=== PATIENT | male | born 1990 | race Caucasian/White ===

== ENCOUNTER 2024-01-31 19:31 | Emergency (ER) | payer OTHER, SELFPAY ==
[2024-01-31 19:33] VITALS: BP 125/85
[2024-01-31 20:07] VITALS: BP 129/84; BMI 27.1
[2024-01-31] MEDS: NSS 1000 IV (20:50)
[2024-01-31 21:00] VITALS: BP 136/74
[2024-01-31 21:00] LABS: % Basophils 0.3 % (0-2); % Eosinophils 0.1 % (0-6); % Immature Granulocytes 0.3 % (0-0.5); % Lymphocytes 13.6 % (20.5-51.1); % Monocytes 6.6 % (1.7-9.3); % Neutrophils 79.1 % (42.2-75.2); Absolute Lymphocytes 1.5 10^3/uL (1.2-3.4); Absolute Monocytes 0.8 10^3/uL (0.1-0.6); Hematocrit 45.8 % (39.0-52.0); Hemoglobin 16.5 g/dL (13.0-18.0); Mean Corpuscular Hgb 30.6 pg (27.0-31.0); Mean Platelet Volume 9.4 fL (7.4-10.4); Nucleated Red Blood Cells % 0 % (-); Platelet Count 289 10^3/uL (130-400); Red Blood Cell Count 5.39 10^6/uL (4.70-6.10); Red Cell Dist. Width 11.9 % (11.5-14.5); White Blood Cell Count 11.3 10^3/uL (4.8-10.8)
[2024-01-31 21:11] LABS: Amphetamines Negative (Negative); Barbiturates Negative (Negative); Benzodiazepines Negative (Negative); Buprenorphine Negative (Negative); Cocaine Negative (Negative); Marijuana Negative (Negative); Methadone Negative (Negative); Methamphetamines Negative (Negative); Opiates Negative (Negative); Phencyclidine Negative (Negative); Tricyclic Antidepressants Negative (Negative)
[2024-01-31 21:12] LABS: ALT (SGPT) 62 U/L (0-50); AST (SGOT) 32 U/L (17-59); Albumin 3.6 g/dl (3.5-5.0); Alkaline Phosphatase 69 U/L (38-126); Blood Urea Nitrogen 19 mg/dl (9-20); Calcium 7.9 mg/dl (8.4-10.2); Carbon Dioxide 24 mmol/L (22-30); Chloride 108 mmol/L (98-107); Estimated Creatinine Clearance > 125 ml/min; Glucose 90 mg/dl (70-99); Potassium 3.6 mmol/L (3.5-5.1); Sodium 139 mmol/L (135-145); Total Bilirubin 0.3 mg/dl (0.2-1.3); Total Protein 6.5 g/dl (6.3-8.2); eGFR > 60.00
[2024-01-31 22:00] VITALS: BP 136/75
--- NOTE | 2024-01-31 23:46 | ED.GENMED ---
History of Present Illness
General
Chief Complaint: Dizziness
Source: patient
Exam Limitations: none
Time Seen by Provider: 01/31/24 20:03
Nursing documentation reviewed up to this point in time: agreed with
Travel History
Have you had any contact with someone who has COVID-19?: No
Do you have any symptoms of coronavirus? Fever > 100 degrees, chills, cough, shortness of breath, sore throat, loss of taste or smell, muscle aches, or headache?: No
History of Present Illness
History of Present Illness:
Patient states he drank and energy drink and then took 5 capsules of Kraton. States he started to feel dizzy, had difficutly focusing, muscle spasms, and then felt like he was having a panic attack. He called 911. Brought to ED b EMS for eval. He
is awake and alert, in no distress. VSS
Past History
Past History
ED Past Medical History: None
ED Past Surgical History: None
Review of Systems
Review of Systems
All Other Systems: ROS reviewed and negative except as documented in HPI and ROS
Constitutional: Reports no symptoms
EENT: Reports no symptoms
Respiratory: Reports no symptoms
Cardiac: Reports no symptoms
ABD/GI: Reports no symptoms
: Reports no symptoms
Musculoskeletal: Reports no symptoms
Skin: Reports no symptoms
Neurological: Reports dizzy
Psychiatric: Reports no symptoms
Phy Exam
General Physical Exam
General Presentation: well appearing and no apparent distress
General age: appears stated age
General Skin: warm and dry
General Habitus: normal
General Mental: alert
Cardiovascular Exam
Cardiovascular Exam: regular rate/rhythm and no edema
Pulmonary Exam
Pulmonary Exam: lungs clear and no respiratory distress
Neurological Exam
Neurological Exam: alert, oriented x3, CN II-XII intact and no motor deficits
Musculoskeletal Exam
Musculoskeletal Exam: full ROM and neuro vasc intact
Skin Exam
Skin Exam: normal color, warm/dry and no rash
Psychiatric Exam
Psychiatric Exam: normal mood/affect
Course
Orders/Labs/Results
Orders:
Orders
01/31/24 19:38
Electrocardiogram (*1) Urgent
Reason for Study: Vertigo / Dizzy
01/31/24 19:39
EKG- Treatment ONCE
01/31/24 20:35
0.9% Sodium Chloride 1000 ml [Nss] 1,000 ml IV BOLUS
01/31/24 20:47
Complete Blood Count/With Diff Urgent
Comprehensive Metabolic Panel Urgent
Urine Drug Abuse Screen Urgent
Date Specimen was Collected: 01/31/24
Time Specimen was Collected: 20:45
Abnormal Lab Results
01/31/24
20:47
WBC 11.3 H 10^3/uL
(4.8-10.8)
Absolute Neuts (auto) 9.0 H 10^3/uL
(1.4-6.5)
Absolute Monos (auto) 0.8 H 10^3/uL
(0.1-0.6)
Neutrophils % 79.1 H %
(42.2-75.2)
Lymphocytes % 13.6 L %
(20.5-51.1)
Chloride 108 H mmol/L
(98-107)
Calcium 7.9 L mg/dl
(8.4-10.2)
ALT 62 H U/L
(0-50)
01/31/24 20:47
01/31/24 20:47
Vital Signs
Initial and Last Documented VS:
Initial Vital Signs
Temp Pulse Resp BP Pulse Ox
98.3 F 95 18 125/85 98
01/31/24 19:33 01/31/24 19:33 01/31/24 19:33 01/31/24 19:33 01/31/24 19:33
Last Documented Vital Signs
Temp Pulse Resp BP Pulse Ox
98.3 F 66 11 136/75 96
01/31/24 19:33 01/31/24 22:30 01/31/24 22:30 01/31/24 22:00 01/31/24 22:30
*Critical Care Note
Total Time (30-74mins, 75-104mins- exclusive of procedures): Not Applicable
Update Note
Update Note:
Improved after IV fluids. He is discharged home, will follow up with PCP
ED Attending Note
-
Portions of this chart may have been created with voice recognition software.� Occasional wrong word or��sound alike� substitutions may have occurred due to the inherent limitations of voice recognition software.
Discharge Plan
Departure
Patient Disposition: Home (Routine Discharge)
Date of Disposition: 01/31/24
Time of Disposition: 22:24
Patient with high blood pressure during this ER visit?: No
Condition: Good
Covid-19: Not Applicable
Discharge Problem:
Dizziness
Instructions: Adverse Drug Reactions, Adult (DC), Dizziness
Referrals:
NONE,* [Family Provider] -
Activity Restrictions/Additional Instructions:
Follow up with your family doctor.
Interventions
Interventions:
*Risk Screen - Suicide Last Done: 01/31/24 19:38
*General Assessment Last Done: 01/31/24 19:38
*Neglect/Abuse Screening Last Done: 01/31/24 19:38
ED- Fall Risk Assessment Last Done: 01/31/24 20:08
*ED COVID-19 Vaccine History Last Done: 01/31/24 20:08
*Nursing Disposition Last Done: 01/31/24 22:48
ED- Neurological Assessment Last Done: 01/31/24 20:10
ED- Cardiac Assessment Last Done: 01/31/24 20:10
ED Swallowing Screen Last Done: 01/31/24 21:00
Discharge Date and Time
Discharge Date/Time: 01/31/24 22:48
== END 2024-01-31 22:48 | disposition home or self-care (01) ==
LOC: EMR 19:31
PROVIDERS: Nurse Practitioner; EMERGENCY PHYSICIAN Emergency Medicine
DX: R42 Dizziness and giddiness (principal); M62.838 Other muscle spasm; F41.9 Anxiety disorder, unspecified
CPT/HCPCS: 99284; 96360; 80053; 80306; 85025; 93005

== ENCOUNTER 2024-11-22 06:10 | Day surgery (SDC) | payer OTHER, SELFPAY ==
[2024-11-22 06:55] VITALS: BMI 26.1
[2024-11-22 06:56] VITALS: BMI 26.1
[2024-11-22 06:57] VITALS: BP 123/83
[2024-11-22] MEDS: NORMOSOL-R/PLASMALYTE-A 1000 IV (07:15)
--- NOTE | 2024-11-22 07:31 | HP.FOC2 ---
Focused History & Physical
Chief Complaint
HPI:
Chief Complaint:
34-year-old male who presents with multiple subcutaneous lesions across his abdomen and lower neck. Will plan for resection.
HPI / Indication for Planned Procedure:
34-year-old male who presents with multiple subcutaneous lesions across his abdomen and lower neck. Will plan for resection.
Relevant Past Medical History: Negative
Relevant Social History: Negative
Relevant Family History: Negative
Relevant Past Surgical History: Negative
Review of Systems
Review of Pertinent Systems: All Systems Negative
Medication
See Medication form for detailed medications: Yes
Medication List (including Herbals & OTC):
No Meds [No Current Medications] 11/14/24
Medications Reviewed: Yes
Allergies and Reactions
Patient has Allergies: No
Noted Allergies and Reactions:
Allergy/AdvReac Type Severity Reaction Status Date / Time
No Known Allergies Allergy Verified 11/22/24 06:55
Pertinent Physical Exam
All Other Systems: Negative
Head/Neck: Normal
Diagnosis / Assessment
34-year-old male who presents with multiple subcutaneous lesions across his abdomen and lower neck. Will plan for resection.
Plan / Procedure
Will plan for surgical excision of the subcutaneous lesions under MAC
Anesthesia/Sedation to be done by Anesthesia Provider: Yes
--- NOTE | 2024-11-22 07:32 | W.SUR.PREOP ---
Pre-Operative Surgical Note
-
I have examined this patient prior to the performance of the scheduled procedure.
The patient's condition is unchanged from the time of the current History and
Physical and the patient is able to undergo the scheduled procedure.
--- NOTE | 2024-11-22 08:34 | W.IMMPOSTOP ---
Surgical Immed Post Op Note
-
Primary Surgeon: Oscar Diaz MD
Assisting Surgeon: None
Pre-op Diagnosis: Abdominal wall lipoma x 3, right chest wall lipoma x 1, lower neck sebaceous cyst x 1
Post-op Diagnosis: Same
Procedure Performed:
1. Excision of abdominal wall lipoma
2. Excision of abdominal wall lipoma
3. Excision of abdominal wall lipoma
4. Excision of right chest wall lipoma
5. Excision of lower neck sebaceous cyst
Anesthesia Type: General
Specimen / Cultures:
1. Right upper quadrant abdominal wall lipoma medial
2. Right upper quadrant abdominal wall lipoma lateral
3. Left upper quadrant abdominal wall lipoma
4. Right chest wall lipoma
5. Neck sebaceous cyst
Estimated Blood Loss: 1 cc
Complications: None
Operative Findings: 2 separate lipomas removed through the right upper quadrant medial incision, combined measure 2.5 x 3 cm. A right upper quadrant lateral incision was made for a 5.5 x 3 cm lipoma. A left upper quadrant lipoma was then removed
which measured 2 x 0.5 cm and then a right chest wall lipoma was removed that measured 2.5 x 1.5 cm. Finally an elliptical incision was used to excise a sebaceous cyst of the neck that measured 1 x 1 cm. After irrigating and achieving hemostasis
and all wounds, they were closed in layers with interrupted 3-0 Vicryl's followed by running 4-0 Monocryl suture and Dermabond.
[2024-11-22 08:39] VITALS: BP 119/76
[2024-11-22 08:45] VITALS: BP 136/77
--- NOTE | 2024-11-22 08:58 | OR.RPT ---
Operative Report
Operative Report
Patient Name: Curtis Brothers
: 1990
Date of Operation: 11/22/2024
Pre-op Diagnosis: Abdominal wall lipoma x 3, right chest wall lipoma x 1, lower neck sebaceous cyst x 1
Post-op Diagnosis: Same
Procedure Performed:
1. Excision of abdominal wall lipoma
2. Excision of abdominal wall lipoma
3. Excision of abdominal wall lipoma
4. Excision of right chest wall lipoma
5. Excision of lower neck sebaceous cyst
Surgeon(s):
Dr. Diaz
[employer] Belt(s):
GAYLA Dela Cruz
Anesthesia: MAC
Estimated Blood Loss: 1 cc
Urine Output: None
Drains/Lines/Implants: None
Specimen / Cultures:
1. Right upper quadrant abdominal wall lipoma medial
2. Right upper quadrant abdominal wall lipoma lateral
3. Left upper quadrant abdominal wall lipoma
4. Right chest wall lipoma
5. Neck sebaceous cyst
Indication for surgery:
This is a 34-year-old male with a multiple symptomatic subcutaneous lesions over his abdominal wall and chest wall consistent with lipomas that have been growing and causing him discomfort for several years. In addition he has a recurrent abscess
in his lower neck thought to be a sebaceous cyst in the office. After discussion of risk benefits and alternatives he elected and was consented for surgery to surgically excise all of these subcutaneous lesions.
Operative Findings: 2 separate lipomas removed through the right upper quadrant medial incision, combined measured 2.5 x 3 cm. A right upper quadrant abdominal wall lateral incision was made for a 5.5 x 3 cm lipoma. A left upper quadrant lipoma
was then removed which measured 2 x 0.5 cm and then a right chest wall lipoma was removed that measured 2.5 x 1.5 cm. Finally an elliptical incision was used to excise a sebaceous cyst of the neck that measured 1 x 1 cm. After irrigating and
achieving hemostasis and all wounds, they were closed in layers with interrupted 3-0 Vicryl's followed by running 4-0 Monocryl suture and Dermabond.
Details of the operation:
The patient was brought to the operating room a placed in the supine position. After appropriate sedation by anesthesia, the area of the neck, chest wall and abdomen was prepped and draped in the usual fashion. All lesions were marked
preoperatively. We began with the right upper quadrant medial incision. Here we identified 2 separate lipomas that were removed through the singular incision. They were encapsulated but soft and did come out in pieces. The wound was irrigated
and hemostasis was achieved. My senior administrative assistant close this wound in layers with 3-0 Vicryl followed by 4-0 Monocryl while I moved onto the right upper quadrant lateral mass. Here again, an incision was made and dissection carried down to the lipoma
which was freed circumferentially and removed in its entirety. This process was repeated for the left upper quadrant lipoma as well as the right chest wall lipoma. All lipomas were encapsulated and removed entirely. I then turned my attention to
the neck cyst which was excised using an elliptical incision to ensure the punctum was removed along with the underlying cyst. There was no violation of the capsule and no visible spillage of the cyst contents. The wound was irrigated and closed
similar fashion to the other subcutaneous wounds with interrupted 3-0 Vicryl followed by 4-0 Monocryl subcuticular stitch. Once all the wounds were closed, they were dressed with Dermabond, concluding the procedure. Please see operative findings
details for size dimensions of each lipoma. All counts were correct at the end of procedure. The patient was then transferred to the PACU for recovery.
I was the attending physician and performed the procedure with assistance from the HEDIS COORDINATOR above. I was present for all portions of the case.
Oscar Diaz MD
[2024-11-22 09:00] VITALS: BP 130/82
[2024-11-22 09:15] VITALS: BP 124/82
== END 2024-11-22 09:30 | disposition home or self-care (01) ==
LOC: SDS 06:10
PROVIDERS: ATTENDING PHYSICIAN Surgery
DX: D17.1 Benign lipomatous neoplasm of skin and subcutaneous tissue of trunk (principal); L72.3 Sebaceous cyst
CPT/HCPCS: 22903; 11403; 88304